=== PATIENT | female | born 1935 | race Caucasian/White ===

== ENCOUNTER 2016-12-06 19:31 | Emergency (ER) | payer MEDICARE, OTHER ==
[~2016-12-06 19:31] MED LIST: ACET500CAP PO; ARICEPT10 PO; B121000P IM; BISR PR; CLARIT10 PO; FLONASE NAS; IMOD PO; LEXAPRO20 PO; MOMUD PO; PEP20 PO; PRIN5 PO; THERGRANM PO; [UNRECOGNIZED DRUG - OTHER]
== END 2016-12-06 22:30 | disposition home or self-care (01) ==
LOC: ER 19:31
DX: S09.90XA Unspecified injury of head, initial encounter (principal); I10 Essential (primary) hypertension; E78.00 Pure hypercholesterolemia, unspecified; F32.9 Major depressive disorder, single episode, unspecified; F41.9 Anxiety disorder, unspecified; Z79.899 Other long term (current) drug therapy; W18.30XA Fall on same level, unspecified, initial encounter
CPT/HCPCS: 70450; 72125; 72170; 99285